=== PATIENT | female | born 1990 | race Two or more races ===

== ENCOUNTER 2019-01-09 10:00 | Emergency (ER) | payer OTHER ==
[2019-01-09] MEDS ORDERED: Alum Hydrox/Mag Hydrox/Simeth 30 ML, Lidocaine 2% 15 ML PO ONE ×2 (10:28)
[2019-01-09] MEDS ORDERED: Hyoscyamine 0.125 MG Tab.SL SL ONE (10:28)
--- NOTE | 2019-01-09 10:28 | EDM.PDOC ---
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 She presents with diffuse epigastric abdominal pain with reflux brash water taste in her mouth for the last 2 days. He did interfere with her sleeping last night. She does admit to eating a lot of salsa and jalapeno peppers. Pain does not seem to radiate through to her back. She has not vomited. She has not tried any antacids such as Tums or Rolaids. She has never had this type of problem before. She's never been . Bowel movements are normal. No previous abdominal surgery. She does burp and belch an effort to relieve the pain but has been unable to do so. She is unsure if she could be . Onset: Sudden Onset Date: 01/08/19 Onset Time: 07:00 Duration: Day(s): Location: Reports: Abdomen (Epigastric pain radiating up into the lower chest.) Quality: Reports: Ache ( Does not radiate through to the back.), Pressure Severity: Moderate Improves with: Reports: None (5 out of 10) Worsens with: Reports: None Context: Reports: Other (Spontaneous occurrence). Denies: Activity, Exercise, Lifting, Sick Contact, Trauma Associated Symptoms: Reports: Loss of Appetite (Burping belching.), Malaise, Other. Denies: Fever/Chills, Nausea/Vomiting, Rash, Seizure, Shortness of Breath Treatments AGENT PRODUCER: Reports: Other (see below) (None.) Upper Abdomen Pain Score (Numeric/FACES): 5 - Related Data Allergies Allergy/AdvReac Type Severity Reaction Status Date / Time No Known Allergies Allergy Verified 01/09/19 10:10 Home Meds: Home Meds Dicyclomine [Bentyl] 20 mg PO Q6H PRN #8 tablet 01/09/19 [Rx] Ranitidine [Zantac] 150 mg PO BEDTIME #30 tab 01/09/19 [Rx] Past Medical History - Past Health History Medical/Surgical History: Denies Medical/Surgical History VEGETABLE BUNCHER History: Reports: Other (See Below) Other VEGETABLE BUNCHER History: cysts Social & Family History - Family History Family Medical History: Noncontributory - Tobacco Use Smoking Status *Q: Never Smoker - Caffeine Use Caffeine Use: Reports: Coffee - Alcohol Use Days Per Week of Alcohol Use: 1 Number of Drinks Per Day: 1 Total Drinks Per Week: 1 - Recreational Drug Use Recreational Drug Use: No - Living Situation & Occupation Living situation: Reports: ED ROS GENERAL - Review of Systems Review Of Systems: See Below Constitutional: Reports: Decreased Appetite. Denies: Fever, Chills, Malaise, Weakness, Fatigue, Weight Loss HEENT: Reports: No Symptoms Respiratory: Reports: Shortness of Breath (Subjective shortness of breath as deep breathing makes the epigastric pain much worse.) Cardiovascular: Reports: No Symptoms Endocrine: Reports: No Symptoms GI/Abdominal: Reports: Abdominal Pain (Epigastric abdominal pain with no radiation through to the back. So she with heartburn and brash water reflux up into her lower through pipe), Decreased Appetite, Nausea. Denies: Constipation , Diarrhea ( and bad tasting material in her mouth since yesterday.), Difficulty Swallowing, Distension, Flatus, Hematemesis, Hematochezia, Melena, Mucous in Stool, Stool Incontinence, Vomiting, Other : Reports: No Symptoms Musculoskeletal: Reports: No Symptoms Skin: Reports: No Symptoms Neurological: Reports: No Symptoms Psychiatric: Reports: No Symptoms Hematologic/Lymphatic: Reports: No Symptoms Immunologic: Reports: No Symptoms ED EXAM, GI/ABD - Physical Exam Exam: See Below Exam Limited By: Language Barrier General Appearance: Alert, WD/WN (She does not speak Macedonian. Her is here to act as flavoring oil filterer and he speaks very good Macedonian.), No Apparent Distress Eyes: Bilateral: Normal Appearance (No scleral icterus.) Throat/Mouth: Normal Inspection, Normal Lips, Normal Teeth, Normal Oropharynx, Other Head: Atraumatic, Normocephalic Neck: Normal Inspection, Supple, Non-Tender, Full Range of Motion. No: Lymphadenopathy (L), Lymphadenopathy (R) Respiratory/Chest: No Respiratory Distress, Lungs Clear, Normal Breath Sounds, No Accessory Muscle Use Cardiovascular: Normal Peripheral Pulses, Regular Rate, Rhythm, No Edema, No Gallop, No Murmur, No Rub GI/Abdominal Exam: Tender (Bob tender in the epigastrium and slightly along the costal margin medially. On the right side would have to say she has a very mild positive Olivares's sign.), Abnormal Bowel Sounds (Bowel sounds are very quiet sent in the abdomen.) Back Exam: Normal Inspection, Full Range of Motion. No: CVA Tenderness (L), CVA Tenderness (R) Extremities: Normal Inspection, Normal Range of Motion, Non-Tender, No Pedal Edema Neurological: Alert, Oriented, CN II-XII Intact, Normal Cognition, Normal Gait Psychiatric: Normal Affect, Normal Mood Skin Exam: Warm, Dry, Intact, Normal Color, No Rash Course - Vital Signs Last Recorded V/S: Last Vital Signs Temp 36.4 C 01/09/19 10:06 Pulse 92 01/09/19 10:06 Resp 18 01/09/19 10:06 BP 145/94 H 01/09/19 10:06 Pulse Ox 100 01/09/19 10:06 - Orders/Labs/Meds Orders: Active Orders 24 hr Category Date Time Status Dextrose 5%-0.9% NaCl [Dextrose 5%-Normal Saline] 1,000 Med 01/09/19 10:45 Active ml IV ASDIRECTED Medication Orders Dextrose/Sodium Chloride (Dextrose 5%-Normal Saline) 1,000 mls @ 150 mls/hr IV ASDIRECTED JIM Last Admin: 01/09/19 10:56 Dose: 150 mls/hr Labs: Laboratory Tests 01/09/19 01/09/19 01/09/19 Range/Units 10:20 10:20 10:40 C-Reactive Protein 0.2 (<1.0) mg/dL Lipase 319 (73-393) U/L Urine Color Colorless L (Yellow) Urine Appearance Clear (Clear) Urine pH 6.5 (5.0-8.0) Ur Specific [place] 1.010 (1.005-1.030) Urine Protein Negative (Negative) Urine Glucose (UA) Negative (Negative) Urine Ketones Negative (Negative) Urine Occult Blood 1+ H (Negative) Urine Nitrite Negative (Negative) Urine Bilirubin Negative (Negative) Urine Urobilinogen 0.2 (0.2-1.0) Ur Leukocyte Esterase Negative (Negative) Urine RBC 0-5 (0-5) /hpf Urine WBC 0-5 (0-5) /hpf Ur Squamous Epith Cells 0-5 (0-5) /hpf Urine Bacteria Not seen (FEW) /hpf Urine Mucus Not seen (FEW) /hpf Urine HCG, Qual Negative (NEGATIVE) Meds: Medications Generic Name Dose Route Start Last Admin Trade Name Maryana PRN Reason Stop Dose Admin Dextrose/Sodium Chloride 1,000 mls @ 150 mls/hr 01/09/19 10:45 01/09/19 10:56 Dextrose 5%-Normal Saline IV 150 mls/hr ASDIRECTED JIM Administration Discontinued Medications Generic Name Dose Route Start Last Admin Trade Name Maryana PRN Reason Stop Dose Admin Al Hydroxide/Mg Hydroxide 30 0 ml 01/09/19 10:28 01/09/19 10:37 ml/ Lidocaine HCl 15 ml PO 01/09/19 10:29 45 ml ONETIME ONE Administration Dicyclomine HCl 20 mg 01/09/19 10:29 01/09/19 10:37 Bentyl PO 01/09/19 10:30 20 mg ONETIME ONE Administration Hyoscyamine 0.125 mg 01/09/19 10:28 01/09/19 10:37 Hyomax-Sl SL 01/09/19 10:29 0.125 mg ONETIME ONE Administration - Radiology Interpretation Free Text/Narrative:: 28-year-old female [place] descent presents to the ED with epigastric abdominal pain since yesterday morning when she awoke. Pain radiates up into her chest and throat. She is aware of heartburn and brash water reflux. Pain is persistent and is made worse by eating. History is a history of intermittent reflux disease. Does not use any Tums or Rolaids or Prilosec etc. Pain is been persistent now for over 24 hours. No previous similar problems to suggest a hiatal hernia. Pain is worsened by deep breathing suggesting hiatal hernia. She localizes pain very well to the epigastrium and slightly along the right medial costal margin. She would have a very minimal positive Olivares sign. Plan routine labs to be obtained. This will include a lipase. She does not drink alcohol very often. We'll try Levsin 0.125 mg sublingual. Bentyl 20 mg orally with a GI cocktail to see if this relieves her pain. Failing this she will require IV drug therapy. Urinalysis will be collected with plans to duplex she test on the urine. Imaging will be decided after this. - Re-Assessments/Exams Free Text/Narrative Re-Assessment/Exam: 01/09/19 11:38 patient has received very little relief from the oral Levsin and Bentyl in the GI cocktail. We'll have CT of the chest and abdomen performed with oral contrast only to rule out an incarcerated hiatal hernia 01/09/19 11:40 C-reactive protein is 0.2. Serum lipase is 319. Urine was colorless and contains 1+ occult blood but no signs of infection. Urine hCG is negative 01/09/19 13:13 Patient through the flavoring oil filterer indicates that her pain is completely gone after the upper GI CT scan which did not show a hiatal hernia. It did reveal some reflux of contrast into the lower esophagus. It also did not show any evidence of calcified gallstones. Normal-appearing liver and spleen. Pancreas normal. I suspect that the hiatal hernia reduced with the oral contrast. I'm going to place her on Zantac 150 milligrams every night at bedtime since she has a chronic problem with reflux disease disease. Bentyl 20 mg will be used every 6 hours as needed for similar type pain. Follow-up with personal care physician if any further problems occur. Departure - Departure Time of Disposition: 13:14 Disposition: Home, Self-Care 01 Condition: Fair Clinical Impression: Hiatal hernia with GERD Abdominal pain Qualifiers: Abdominal location: epigastric Qualified Code(s): R10.13 - Epigastric pain - Discharge Information *PRESCRIPTION DRUG MONITORING PROGRAM REVIEWED*: Not Applicable *COPY OF PRESCRIPTION DRUG MONITORING REPORT IN PATIENT NEHA: Not Applicable Prescriptions: Dicyclomine [Bentyl] 20 mg PO Q6H PRN #8 tablet PRN Reason: Abdominal cramps/diarrhea Ranitidine [Zantac] 150 mg PO BEDTIME #30 tab Instructions: Hiatal Hernia Referrals: PCP,None [Primary Care Provider] - Forms: ED Department Discharge Additional Instructions: Evaluation the emergent today in regards to development of severe epigastric abdominal pain for the last 24 hours. Pain is worsened by deep breathing strongly suggestive of a hiatal hernia which means the stomach has herniated up through the opening where the food pipe traverses the diaphragm into the lower chest. The part of the stomach gets stuck in this area but it causes pain and worsens with deep breathing and also is a reason for recurrent chronic heartburn. Pain got better after taking oral contrast which would pull stomach back down into the abdomen where it belongs. You're treated in the ED with sublingual Levsin tablets to see if the relieve spasm and pain and Bentyl 20 mg by mouth as well. Also GI cocktail all of which failed to improve the pain. Home is to avoid eating large meals at all. Try to void eating for at least 3 hours before going to bed. Be very careful with minimal amount of soda pop intake. Suggest Zantac 150 milligrams every night at bedtime to help relieve indigestion and heartburn chronically. Bentyl 20 mg was prescribed as well which can be taken every 6 hours as needed for similar type pain. However if the pain does not get better with Bentyl in our would have to return to the ED. Follow-up with your personal care provider if any further problems occur. - My Orders Last 24 Hours: My Active Orders 01/09/19 10:45 Dextrose 5%-0.9% NaCl [Dextrose 5%-Normal Saline] 1,000 ml IV ASDIRECTED - Assessment/Plan Last 24 Hours: My Active Orders 01/09/19 10:45 Dextrose 5%-0.9% NaCl [Dextrose 5%-Normal Saline] 1,000 ml IV ASDIRECTED
[2019-01-09] MEDS ORDERED: Dicyclomine 10 MG Cap PO ONE (10:29)
[2019-01-09] MEDS ORDERED: Dextrose 5%-0.9% NaCl 1,000 ML IV SCH (10:45)
--- NOTE | 2019-01-09 13:04 | CT ---
CT chest Technique: Multiple axial sections were obtained from above the lung apices inferiorly through the lung bases. Intravenous contrast was not utilized. Findings: Mediastinum and hilar regions show no adenopathy or mass. No axillary adenopathy is seen. No pericardial thickening is seen. No coronary artery calcification is noted. Contrast reflux noted into the esophagus. Lungs are clear. No acute parenchymal change is appreciated. No pleural effusions are seen. No pneumothorax is identified. No acute osseous abnormality is appreciated. Impression: 1. Contrast reflux into the esophagus. 2. Noncontrast CT study of the chest is otherwise unremarkable. Diagnostic code #3 CT abdomen and pelvis Technique: Multiple axial sections were obtained from above the dome of the diaphragm inferiorly through the pubic symphysis. Intravenous contrast not utilized. Oral contrast was given which remains within the stomach. Comparison: No prior abdominal imaging. Findings: Liver contains no discrete focal abnormality. Spleen appears within normal limits. Adrenal glands show no nodule. Pancreas is within normal limits. Gallbladder contains no calcified gallstones. Adrenal glands show no nodule. Kidneys show no abnormal calcifications or hydronephrosis. Aorta shows no aneurysm. No retroperitoneal adenopathy or mesenteric abnormalities are seen. No pelvic mass or adenopathy is seen. Appendix is seen and is felt to be within normal limits in size. No pelvic mass or adenopathy is seen. No free fluid or inflammatory change is seen. Bone window settings were reviewed which appears within normal limits for the patient's age. Impression: 1. No abnormality is appreciated on noncontrast CT study of the abdomen and pelvis. Diagnostic code #1
== END 2019-01-09 13:34 | disposition home or self-care (01) ==
LOC: JD.ED 10:00
DX: K44.9 Diaphragmatic hernia without obstruction or gangrene (principal); K21.9 Gastro-esophageal reflux disease without esophagitis
CPT/HCPCS: 36415; 71250; 74176; 81001; 81025; 83690; 86140; 96360; 96361; 99284; A9270; J7042; 99285